=== PATIENT | female | born 1975 | race Caucasian/White ===

== ENCOUNTER 2016-11-28 11:11 | Inpatient (IN) | payer MEDICAID ==
[~2016-11-28] VITALS: Ht 160 cm; Wt 77.9 kg
[~2016-11-28 11:11] MED LIST: ACET325T33 PO
[2016-11-28 11:39] VITALS: Ht 160 cm; Wt 77.9 kg
[2016-11-28] MEDS ORDERED: FERR325C PO (11:44)
[2016-11-28] MEDS ORDERED: PREN-99 PO (11:44)
[2016-11-28 11:50] VITALS: BP 125/75; PULSE 84; RESP 18
--- NOTE | 2016-11-28 11:56 | RADRPT ---
PROCEDURE: OB ultrasound for biophysical profile CLINICAL INDICATION: Low amniotic fluid index. TECHNIQUE: Multiple sonographic images of the pelvis were obtained. Transabdominal view of the gr avid uterus are available for review. The images were reviewed on a PACS workstation. COMPARISON: None FINDINGS: breathing movement = 2/2 tone = 2/2 motion = 2/2 Quantitative amniotic fluid volume = 2/2 ELIAS = 4.4 cm Single live intrauterine with cardiac activity at 150 beats per minute. There is a fundal placenta without previa. IMPRESSION: 1. Single living intrauterine gestation in cephalic position. 2. Biophysical profile = 8. 3. Low amniotic fluid index at 4.4 cm. RPTAT: [facility] Physician Genevieve Date Time Electronically viewed and signed by Physician Genevieve on 11/28/2016 11:56 /
--- NOTE | 2016-11-28 12:53 | TRIAGE ---
OB Triage Datetime Report Generated by CPN: 11/28/2016 12:52 Datetime: 11/28/2016 11:54 Stage of : OB Triage Assessment Type: Triage Maternal Assessment Level of Consciousness: Fully Conscious DTR's/Clonus: DTRs 2+; No Clonus Headache: Denies Blurred Vision: No Respiratory Effort: Unlabored; Regular Rhythm; Equal Expansion Breath Sounds, Left: Clear and Equal Breath Sounds, Right: Clear and Equal Nausea/Vomiting: Denies RUQ Epigastric Pain: Denies Lower Extremities Edema: None Degree: None Upper Extremities Edema: None Degree: None Facial Edema: None Temperature Route: Oral Fall Risk Assessment History of Falling: (0) No Secondary Diagnosis: (0) No Ambulatory Aid: (0) Bedrest/Nurse Assist IV Therapy: (0) No Gait: (0) Normal/Bedrest/Immobile Mental Status: (0) Oriented to Own Ability Fall Score: 0 Fall Risk Score Definition: No Risk: No action required Labor Evaluation Frequency: none Monitor Mode: External Resting Tone [place]: Relaxed Heart Rate FHR Baseline Rate: 145 Monitor Mode: External US FHR Baseline Changes: No Baseline Change Variability: Moderate 6-25 bpm Accelerations: 15X15 Decelerations: None Category: Category I Pain Assessment Pain Scale: 0 Pain Presence: None/Denies Pain Type: N/A Datetime: 11/28/2016 11:53 EGA: 37.0 Datetime: 11/28/2016 11:51 Time of Arrival: 11/28/2016 11:12 Arrived By: Ambulatory Arrived From: Dr. Mcginnis Chief Complaint: pt is here from Dr Quinteros office for NST and BPP for low ELIAS, Pt states she feels we t sometimes Movement: Present Contractions: Denies/Absent Rupture of Membranes: Denies Vaginal Bleeding: None Vaginal Discharge: Denies Recent Sexual Intercouse: Denies Abdominal Trauma: Not Applicable Patient Complaints: None Time Provider Notified: 11/28/2016 12:32 Provider Notified: DR QUINTEROS Initial Plan: BPP, NST, ROM + AND SPECULUM EXAM
[2016-11-28] MEDS ORDERED: CARBOPROST 250 MCG INJ IM PRN (14:30)
[2016-11-28] MEDS ORDERED: MISOPROSTOL 200 MCG TAB PR PRN (14:30)
[2016-11-28] MEDS ORDERED: IBUPROFEN 600 MG TAB PO PRN (14:30)
[2016-11-28] MEDS ORDERED: BUTORPHANOL 2 MG INJ IV PRN ×2 (14:30)
[2016-11-28] MEDS ORDERED: OXYTOCIN 30 UNITS/LR 500 ML IV PRN (14:30)
[2016-11-28] MEDS ORDERED: LIDOCAINE 1% (MPF) 30 ML INJ INJ PRN (14:30)
[2016-11-28] MEDS ORDERED: OXYTOCIN 30 UNITS/LR 500 ML IV SCH (14:30)
[2016-11-28] MEDS ORDERED: LACTATED RINGER'S 1,000 ML IV PRN (14:30)
[2016-11-28] MEDS ORDERED: METHYLERGONOVINE 0.2 MG INJ IM PRN (14:30)
[2016-11-28] MEDS ORDERED: ACETAMINOPHEN/CODEINE #3 TAB PO PRN (14:30)
[2016-11-28] MEDS: LACTATED RINGER'S 1,000 ML IV SCH ×3 (14:44→23:10)
[2016-11-28 15:03] LABS: ADD SCAN DIFF NO
[2016-11-28 15:04] LABS: BASOPHIL # 0.1 10^3/ul (0.0-0.1); BASOPHILS % 0.5 % (0.0-2.0); EOSINOPHILS # 0.2 10^3/ul (0.0-0.5); EOSINOPHILS % 1.2 % (0.0-7.0); HEMOGLOBIN 12.5 g/dl (12.0-16.0); LYMPHOCYTES % 15.3 % (15.0-51.0); MEAN CORPUSCULAR HGB CONC 32.9 g/dl (32.0-37.0); MEAN CORPUSCULAR VOLUME 82.1 fl (82.0-101.0); MEAN PLATELET VOLUME 10.1 fl (7.4-10.4); MONOCYTE # 1.2 10^3/ul (0.3-0.9); MONOCYTES % 9.6 % (0.0-11.0); NEUTROPHIL # 9.3 10^3/ul (1.6-7.5); NEUTROPHILS % 72.5 % (39.0-77.0); PLATELET COUNT 274 10^3/UL (140-415); RED BLOOD COUNT 4.63 10^6/ul (4.20-5.40); RED CELL DISTRIBUTION WIDTH 14.3 % (11.5-14.5); WHITE BLOOD COUNT 12.9 10^3/ul (4.8-10.8)
[2016-11-28 15:18] LABS: INR 0.94; PARTIAL THROMBOPLASTIN TIME 26.3 Sec (25.0-35.0); PROTIME 12.6 Sec (12.2-14.2)
[2016-11-28] MEDS ORDERED: DINOPROSTONE 10 MG VAG SUPP VAG ONE (20:00)
[2016-11-28] MEDS ORDERED: ACETAMINOPHEN 500 MG TAB PO PRN (23:30)
[2016-11-29] MEDS: DEXTROSE 5%-LR 1,000 ML IV SCH ×4 (04:10→23:16)
[2016-11-29] MEDS: LACTATED RINGER'S 1,000 ML IV SCH ×6 (05:17→23:10)
[2016-11-30] MEDS: LACTATED RINGER'S 1,000 ML IV SCH ×4 (06:16→19:31)
[2016-11-30] MEDS: DEXTROSE 5%-LR 1,000 ML IV SCH ×2 (07:48→15:10)
[2016-11-30] MEDS ORDERED: OXYTOCIN 30 UNITS/LR 500 ML IV SCH (11:00)
[2016-11-30] MEDS: OXYTOCIN 30 UNITS/LR 500 ML IV SCH ×2 (11:41→23:44)
[2016-11-30] MEDS ORDERED: FENTAnyl 2MCG/ML-ROPIV 0.2% 100 ML ONE (19:14)
--- NOTE | 2016-11-30 23:28 | HP ---
Date/Time of Note Date/Time of Note DATE: 11/30/16 TIME: 23:20 OB - History Hx of Present Free Text/Dictation 41 y.o A2(sab) at 37 w was brought for confirmation of oligohydramnious. AF! 4.4 ROM plus neg VE 1cm 50% -3 admitted foor induction Chief Complaint: low ELIAS Estimated Due Date: Dec 19, 2016 : 5 Para: 2 Spontaneous : 2 Therapeutic : 0 Care: Good Care Ultrasounds: Normal mid trimester US Obstetrical Complications: Gestational Diabetes Past Family/Social History * Past Medical, Surgical, Family and Obstetric Histories reviewed from chart. Blood Type: A+ Rubella: immune RPR/VDRL: Negative GBS Status: Negative HBsAG: Negative OB Admission Exam Vital Signs Vital Signs Vital Signs Date Time Temp Pulse Resp B/P Pulse Ox O2 Delivery O2 Flow Rate FiO2 11/28/16 11:50 98.9 84 18 125/75 Room Air Physical Exam HEENT: WNL Cervical Dilatation: 1cm Effacement: 50% Station: -3 Membranes: Intact Amniotic Fluid: Unevaluable Heart Rate: 150's Accelerations: Accelerations Present Decelerations: No Decelerations Varibility: Moderate Contractions on Admission: 6-10 Minutes Apart Intensity: Mild Last 72 hourBlood Glucose Bedside Glucose - 72 Hours Test 11/28/16 23:59 11/29/16 04:05 11/29/16 08:00 11/29/16 11:14 Bedside Glucose 93mg/dL (70-220) 73mg/dL (70-220) 91mg/dL (70-220) 75mg/dL (70-220) Test 11/29/16 18:47 11/29/16 23:14 11/30/16 03:10 11/30/16 06:55 Bedside Glucose 143mg/dL (70-220) 81mg/dL (70-220) 91mg/dL (70-220) 87mg/dL (70-220) Test 11/30/16 11:31 11/30/16 15:24 11/30/16 19:59 Bedside Glucose 106mg/dL (70-220) 75mg/dL (70-220) 87mg/dL (70-220) Last 72 hours Lab Results CBC & BMP 11/28/16 14:40 OB Assessment/Plan Reason for admission: induction of labor Other Assessment: IUP 37W OLIGOHYDRAMNIOUS Plan: Induction Induction Method: per Misoprostol Protocol HIPOLITO QUINTEROS MD Nov 30, 2016 23:27
--- NOTE | 2016-11-30 23:31 | LDN ---
Date/Time of Note Date/Time of Note DATE: 11/30/16 TIME: 23:28 Delivery Summary OP MANUAL GUIDED ROTATION NORMAL VAGINAL DELIVERY Placenta Delivered: Spontaneously Meconium: none Perineum intact?: No Perineal laceration: 1 Perineal laceration repair: PERINEAL SKIN RYNE WITH 0000 CH GUT Anesthesia type: Epidural Sponge & Needle done & correct: Yes All needle counts correct: Yes Any foreign bodies felt in the: No (Please specify) Problems: Delivery Information Sex Sex: male Apgars 1 Minute: 9 5 Minute: 9 Suctioning Nose & mouth suctioned at delphine: Yes Umbilical Cord Umbilical cord with: 3 Vessels Cord presentations: no nuchal cord Cord Blood was obtained: Yes Mother & Baby Disposition Disposition Mom & Baby to Maternity; Good: Yes Mom transferred to: Other () Baby to NICU: No HIPOLITO QUINTEROS MD Nov 30, 2016 23:31
[2016-12-01] VITALS (25 sets, daily range): BP systolic 117–159; BP diastolic 55–102; PULSE 62–118; RESP 11–37
[2016-12-01] MEDS ORDERED: OXYTOCIN 30 UNITS/LR 500 ML IV PRN (01:30)
[2016-12-01] MEDS ORDERED: ZOLPIDEM 5 MG TAB PO PRN (01:30)
[2016-12-01] MEDS ORDERED: MISOPROSTOL 200 MCG TAB PR PRN (01:30)
[2016-12-01] MEDS ORDERED: BENZOCAINE 20% 56 ML SPRAY TOP PRN (01:30)
[2016-12-01] MEDS ORDERED: WITCH HAZEL/GLYCERIN PAD PR PRN (01:30)
[2016-12-01] MEDS ORDERED: OXYCODONE/ASPIRIN (4.88/325) TAB PO PRN ×2 (01:30)
[2016-12-01] MEDS ORDERED: LANOLIN 7 GM TUBE TOP PRN (01:30)
[2016-12-01] MEDS ORDERED: METHYLERGONOVINE 0.2 MG INJ IM PRN (01:30)
[2016-12-01] MEDS ORDERED: CARBOPROST 250 MCG INJ IM PRN (01:30)
[2016-12-01] MEDS: LACTATED RINGER'S 1,000 ML IV SCH ×3 (04:17→21:30)
[2016-12-01] MEDS: IBUPROFEN 600 MG TAB PO SCH ×3 (05:58→18:00)
[2016-12-01] MEDS ORDERED: CEFAZOLIN 1 GM INJ ONE (07:00)
[2016-12-01] MEDS: SENNA/DOCUSATE NA (8.6MG/50MG) TAB PO SCH ×2 (09:00→21:30)
[2016-12-01 10:21] LABS: ADD SCAN DIFF NO
[2016-12-01 10:27] LABS: BASOPHIL # 0.1 10^3/ul (0.0-0.1); BASOPHILS % 0.3 % (0.0-2.0); EOSINOPHILS # 0.2 10^3/ul (0.0-0.5); HEMATOCRIT 32.1 % (37.0-47.0); HEMOGLOBIN 10.3 g/dl (12.0-16.0); LYMPHOCYTES # 1.8 10^3/ul (0.8-2.9); LYMPHOCYTES % 11.8 % (15.0-51.0); MEAN CORPUSCULAR HEMOGLOBIN 26.8 pg (29.0-33.0); MEAN CORPUSCULAR HGB CONC 32.1 g/dl (32.0-37.0); MEAN CORPUSCULAR VOLUME 83.6 fl (82.0-101.0); MONOCYTE # 1.4 10^3/ul (0.3-0.9); NEUTROPHIL # 11.7 10^3/ul (1.6-7.5); NEUTROPHILS % 77.2 % (39.0-77.0); PLATELET COUNT 227 10^3/UL (140-415); RED BLOOD COUNT 3.84 10^6/ul (4.20-5.40); RED CELL DISTRIBUTION WIDTH 14.6 % (11.5-14.5); WHITE BLOOD COUNT 15.1 10^3/ul (4.8-10.8)
[2016-12-01] MEDS ORDERED: MIDAZOLAM 1 MG/ML 2 ML INJ ONE (18:15)
[2016-12-01] MEDS ORDERED: FENTAnyl 50 MCG/ML VIAL ONE (18:16)
[2016-12-01] MEDS ORDERED: MEPERIDINE 25 MG INJ IV PRN (18:30)
[2016-12-01] MEDS ORDERED: METOCLOPRAMIDE 10 MG INJ IV PRN (18:30)
[2016-12-01] MEDS ORDERED: DIPHENHYDRAMINE 50 MG INJ IV PRN (18:30)
[2016-12-01] MEDS ORDERED: HYDROmorphONE (0.2 MG/ML) 10ML SYG IV PRN (18:30)
[2016-12-01] MEDS ORDERED: ONDANSETRON 4 MG INJ IV PRN (18:30)
[2016-12-01] MEDS ORDERED: BUPIVACAINE 0.25%/EPI (SDV) 30 ML INJ ONE (18:46)
[2016-12-01] MEDS ORDERED: ROCURONIUM 50 MG INJ ONE (19:03)
[2016-12-01] MEDS ORDERED: GLYCOPYRROLATE 0.4 MG INJ ONE (19:03)
[2016-12-01] MEDS ORDERED: NEOSTIGMINE 3 MG/3 ML SYRINGE ONE (19:03)
[2016-12-01] MEDS ORDERED: LIDOCAINE 2% (SDV) 5 ML INJ ONE (19:03)
[2016-12-01] MEDS ORDERED: PROPOFOL 20 ML ONE (19:03)
[2016-12-01] MEDS ORDERED: ONDANSETRON 4 MG INJ ONE (19:03)
[2016-12-01] MEDS: morphine (1 MG/ML) 10ML SYRINGE IV PRN ×2 (19:22→19:59)
[2016-12-01] MEDS: HYDROmorphONE (0.2 MG/ML) 10ML SYG IV PRN ×2 (19:23→19:59)
[2016-12-02] MEDS: IBUPROFEN 600 MG TAB PO SCH ×5 (00:01→17:44)
[2016-12-02 04:00] VITALS: BP 117/80; PULSE 87; RESP 18
--- NOTE | 2016-12-02 05:26 | OPR ---
DATE OF OPERATION: 12/01/2016 PREOPERATIVE DIAGNOSIS: Status post normal vaginal delivery and multiparity for tubal sterilization . POSTOPERATIVE DIAGNOSIS: Status post normal vaginal delivery and multiparity for tubal sterilizatio n. PERFORMED: bilateral partial salpingectomy. ANESTHESIA: General. ANESTHESIOLOGIST: Dr. Giron. SURGEON: Scottie Lyon MD ESTIMATED BLOOD LOSS: Negligible. DESCRIPTION OF PROCEDURE: Under the proper induction of general anesthesia, the patient was placed in frog position. Lopez catheter was introduced into the bladder under sterile condition. Repositi oned to supine. Abdominal wall was prepped and draped in usual aseptic manner. A transverse incisi on was made on the subumbilical region which was scarred from the piercing previously and incision c arried down to the fascia. Peritoneum was entered, and the patient was placed in the Trendelenburg position. Right fallopian tube was identified, traced to the fimbriated end, and created loop of tu be. This loop of tube was doubly ligated with 0 plain, and the loop of tube was excised. Tubal lum en was cauterized. The same procedure was done on the left fallopian tube, traced to the fimbriated end, created loop of tube on the avascular area in the mesosalpinx, this loop of tube was doubly li gated with 0 plain, and loop of tube was excised. Tubal lumen was cauterized. No bleeder was noted . Lap count and instrument count correct. Peritoneum was closed with a #1 Vicryl in pursestring ma nner. Fascia closed with #1 Vicryl in continuous manner. Skin was closed with a subcuticular jake r. Estimated blood loss was negligible. The patient withstood the procedure well and was sent to [facility] recovery room in stable condition. Dictated By: SCOTTIE SPARKS/TEDDY Conf#: [id number] DID#: [id number]
[2016-12-02 07:50] VITALS: BP 127/70; PULSE 67; RESP 18
[2016-12-02] MEDS ORDERED: DIPHTH/TET/ACEL PERTUSS (ADULT) 0.5 ML VIAL IM* ONE (09:00)
[2016-12-02] MEDS: SENNA/DOCUSATE NA (8.6MG/50MG) TAB PO SCH (09:06)
--- NOTE | 2016-12-02 13:43 | DS ---
Date/Time of Note Date/Time of Note DATE: 12/02/16 TIME: 13:40 Obstetrical Discharge Record Final Diagnosis Final Diagnosis: Term delivered Vaginal Delivery Obstetrical Delivery: Spontaneous, Bilateral Tubal Ligation Complications Other (oligohydramnious) Induction: Yes Condition on Discharge Physical Assessment Last Vitals: vss afebrile fundus firm abdomen soft wound dry lochia min calf jorden Voiding: Yes Bowel Movement: Yes Breast: Soft, non-tender Fundus: Firm Abdomen and Incision: soft wound dry Calf Tenderness: No Patient Condition: Stable HIPOLITO QUINTEROS MD Dec 02, 2016 13:43
--- NOTE | 2016-12-02 13:44 | PD.PPDC ---
LOGISTICS ASSOCIATE Discharge Instruction Diagnosis Final Diagnosis: s/p normal vaginal delivery and tubal sterilization Condition Patient Condition: Stable Diet Diet: Resume Regular Diet Activity/Restrictions Activity: May Shower Restrictions: No Lifting No Sexual Activity Nothing in the Vagina No [place] No Tampons, douche Follow-up Follow-up with Physician: 2, Week/Weeks Return to clinic for TRAUMA COUNSELLOR Instructions: Fever greater than 101 Chills Worsening abdominal pain Excessive Vaginal Bleeding More than 2 pads per hour Unable to tolerate diet OB Instructions: Breast Tenderness Depression Blurried Vision Headache Surgical Instructions: Incisional Drainage Incisional Redness HIPOLITO QUINTEROS MD Dec 02, 2016 13:44
[2016-12-02 15:30] VITALS: BP 123/74; PULSE 71; RESP 16
== END 2016-12-02 18:30 | disposition home or self-care (01) | DRG 767 ==
LOC: OBT 11:11 → L-D 11:12 → OBT 12:55 → L-D 12:56 → PP1 12-01 01:23 → UNDODISIN 12-02 15:10
PROVIDERS: ADMIT Obstetrics & Gynecology; ATTEND Obstetrics & Gynecology
PROC: 3E0P7GC Introduction of Other Therapeutic Substance into Female Reproductive, Via Natural or Artificial Opening (ICD-10-PCS; 2016-11-28)
PROC: 10E0XZZ Delivery of Products of Conception, External Approach (ICD-10-PCS; principal; 2016-11-30)
PROC: 0HQ9XZZ Repair Perineum Skin, External Approach (ICD-10-PCS; 2016-11-30)
PROC: 4A1HX4Z Monitoring of Products of Conception, Cardiac Electrical Activity, External Approach (ICD-10-PCS; 2016-11-30)
PROC: 0UB70ZZ Excision of Bilateral Fallopian Tubes, Open Approach (ICD-10-PCS; 2016-12-01)
PROC: 3E0234Z Introduction of Serum, Toxoid and Vaccine into Muscle, Percutaneous Approach (ICD-10-PCS; 2016-12-02)
DX: O41.03X0 Oligohydramnios, third trimester, not applicable or unspecified (principal); E66.9 Obesity, unspecified; O99.214 Obesity complicating childbirth; O70.0 First degree perineal laceration during delivery; Z68.30 Body mass index [BMI] 30.0-30.9, adult; O24.420 Gestational diabetes mellitus in childbirth, diet controlled; Z30.2 Encounter for sterilization; Z23 Encounter for immunization; Z3A.37 37 weeks gestation of pregnancy; Z37.0 Single live birth
CPT/HCPCS: 62319; 76818; 82962; 84112; 85025; 85610; 85730; 86592; 86900; 86901; 87340; 88302; 90715; G0463; J0690; J1170; J2175; J2250; J2270; J2405; J2590; J2710; J3010; J7120; J7121